=== PATIENT | male | born 1945 | race Asian ===

== ENCOUNTER 2021-08-06 10:16 | Emergency (ER) | payer MEDICARE, OTHER ==
--- NOTE | 2021-08-06 10:48 | XRAY Report ---
PROCEDURE: Chest 1 View X-Ray INDICATIONS: Chest pain TECHNIQUE: One view of the chest was acquired. COMPARISON: None FINDINGS: Surgical changes and devices: None. Lungs and pleura: An incomplete inspiratory result is noted, with low lung volumes and crowding of t he vascular markings. No focal infiltrates are seen. No large pneumothorax or large pleural effusion can be seen. Mediastinum: Mediastinal contours appear normal. Heart size is normal. Bones and chest wall: No suspicious bony lesions. Presumed enchondromas can be seen involving the ri ght proximal humerus. Age-appropriate degenerative changes are seen. Overlying soft tissues appear unremarkable. IMPRESSION: No acute abnormality can be seen on this portable chest study. Reviewed by: Ang Anne MD on 08/06/2021 9:46 AM MIT[facility]LL Approved by: Ang Anne MD on 08/06/2021 9:46 AM [place]LL Station ID: [id number]
[2021-08-06 10:50] LABS: BASOPHILS # (AUTO) 0.1 10^3/uL (0.0-0.1); BASOPHILS % (AUTO) 1.1 %; EOSINOPHILS # (AUTO) 0.1 10^3/uL (0.0-0.7); EOSINOPHILS % (AUTO) 1.3 %; HCT - HEMATOCRIT 38.4 % (42.0-52.0); HGB - HEMOGLOBIN 13.4 g/dL (14.0-18.0); LYMPHOCYTES # (AUTO) 1.2 10^3/uL (1.5-3.5); LYMPHOCYTES % (AUTO) 22.3 %; MEAN CORPUSCULAR HEMOGLOBIN 33.8 pg (27.0-31.0); MEAN CORPUSCULAR HGB CONC 34.9 g/dL (32.0-36.0); MEAN PLATELET VOLUME 9.2 fL (7.4-11.4); MONOCYTES # (AUTO) 0.6 10^3/uL (0.0-1.0); MONOCYTES % (AUTO) 10.7 %; NEUTROPHILS # (AUTO) 3.6 10^3/uL (1.5-6.6); NEUTROPHILS % (AUTO) 64.4 %; PLT - PLATELET COUNT 169 10^3/uL (130-450); RED BLOOD COUNT 3.96 10^6/uL (4.70-6.10); RED CELL DISTRIBUTION WIDTH 12.6 % (12.0-15.0); WHITE BLOOD COUNT 5.5 x10^3/uL (4.8-10.8)
[2021-08-06 11:05] LABS: ALBUMIN 4.3 g/dL (3.2-5.5); ALBUMIN/GLOBULIN RATIO 1.5 (1.0-2.2); BILIRUBIN,TOTAL 1.2 mg/dL (0.2-1.0); CALCIUM 9.6 mg/dL (8.5-10.3); CREATININE 1.2 mg/dL (0.6-1.2); TOTAL PROTEIN 7.2 g/dL (6.7-8.2)
--- NOTE | 2021-08-06 11:10 | ED Physician Documentation ---
PD HPI CHEST PAIN - Stated complaint Stated Complaint: CHEST PX - Chief complaint Chief Complaint: Cardiac - History obtained from History obtained from: Patient - History of Present Illness Timing - onset: Yesterday Timing - onset during: Light activity Timing - duration: Days (1) Timing - details: Waxing and waning Quality: Pressure, Tightness Location: Substernal Radiation: No: Jaw, Neck, Back Improved by: Rest, Nitro (took 2 NTG yesterday with improved symptoms. Chest discomfort back again today, but not improved with NTG.) Worsened by: Exertion (increased with walking around today. He has noted some mild pressure and dyspnea when walking the dog the past couple of weeks. prior CAD with [place]/stent 1998, with last stress testing done 3 years ago.). No: Inspiration, Movement Associated symptoms: No: Shortness of air, Nausea, Feeling faint / dizzy Similar symptoms before: Has not had sx before Recently seen: Not recently seen Review of Systems Constitutional: denies: Fever, Chills Nose: denies: Rhinorrhea / runny nose, Congestion Throat: denies: Sore throat Cardiac: reports: Chest pain / pressure. denies: Palpitations, Pedal edema, Calf pain Respiratory: denies: Dyspnea, Cough GI: denies: Abdominal Pain, Nausea, Vomiting, Diarrhea Musculoskeletal: denies: Neck pain, Back pain, Extremity swelling Neurologic: denies: Generalized weakness, Near syncope PD PAST MEDICAL HISTORY - Past Medical History Past Medical History: Yes Cardiovascular: Hypertension, High cholesterol, [place] Respiratory: None Neuro: None Endocrine/Autoimmune: Type 2 diabetes - Past Surgical History Past Surgical History: Yes Ortho: Spine surgery Cardiovascular: Coronary stent, AAA - Present Medications Home Medications: Ambulatory Orders Medication Instructions Recorded Confirmed Atorvastatin Calcium [Lipitor] 80 mg DAILY 08/06/21 08/06/21 Ezetimibe [Zetia] 1 tab DAILY 08/06/21 08/06/21 Isosorbide Mononitrate ER [Imdur] 30 mg PO DAILY 10 Days #10 tablet 08/06/21 Metoprolol Tartrate [Lopressor] 0 mg DAILY 08/06/21 08/06/21 lisinopriL [Zestril] 5 mg DAILY 08/06/21 08/06/21 metFORMIN [Glucophage] 1 tab DAILY 08/06/21 08/06/21 - Allergies Allergies/Adverse Reactions: Allergies Allergy/AdvReac Type Severity Reaction Status Date / Time morphine Allergy Hallucinati Verified 08/06/21 10:26 ons Penicillins Allergy Rash Verified 08/06/21 10:26 - Social History Does the pt smoke?: No Smoking Status: Never smoker Does the pt drink ETOH?: No Does the pt have substance abuse?: No PD ED PE NORMAL - Vitals Vital signs reviewed: Yes - General General: Alert and oriented X 3, No acute distress, Well developed/nourished - HEENT HEENT: Moist mucous membranes, Pharynx benign - Neck Neck: Supple, no meningeal sign, No adenopathy - Cardiac Cardiac: RRR, No murmur - Respiratory Respiratory: Clear bilaterally, Other (no chestwall tenderness. ) - Abdomen Abdomen: Soft, Non tender - Derm Derm: Normal color, Warm and dry - Extremities Extremities: No edema, No calf tenderness / cord - Neuro Neuro: Alert and oriented X 3, No motor deficit, Normal speech Results - Vitals Vitals: Oxygen O2 Source Room air - EKG (time done) 10:16 Rate: Rate (enter#) (83) Rhythm: NSR Crawford: Normal Intervals: Normal IN QRS: Normal Ischemia: Normal ST segments. No: ST elevation c/w ischemia, ST depression - Labs Labs: Laboratory Tests 08/06/21 08/06/21 08/06/21 10:37 10:37 10:37 WBC 5.5 RBC 3.96 L Hgb 13.4 L Hct 38.4 L MCV 97.0 H MCH 33.8 H MCHC 34.9 RDW 12.6 Plt Count 169 MPV 9.2 Neut # (Auto) 3.6 Lymph # (Auto) 1.2 L [place] # (Auto) 0.6 Eos # (Auto) 0.1 Baso # (Auto) 0.1 Absolute Nucleated RBC 0.00 Nucleated RBC % 0.0 Sodium 137 Potassium 4.0 Chloride 104 Carbon Dioxide 24 Anion Gap 9.0 BUN 21 H Creatinine 1.2 Estimated GFR (MDRD) 59 L Glucose 163 H Calcium 9.6 Total Bilirubin 1.2 H AST 23 ALT 26 Alkaline Phosphatase 65 Troponin I High Sens 5.2 Total Protein 7.2 Albumin 4.3 Globulin 2.9 Albumin/Globulin Ratio 1.5 Lipase 27 - Rads (name of study) chest xray Radiology: Prelim report reviewed (normal), See rad report PD MEDICAL DECISION MAKING - ED course Complexity details: re-evaluated patient (improved with NTG and Toradol. no further CP here. ), considered differential, d/w patient, d/w customer care consultant (Dr. Rios, cork insulation installer for Dr. Back. ) Departure - Departure Disposition: 01 Home, Self Care Clinical Impression: Chest pain Qualifiers: Chest pain type: precordial pain Qualified Code(s): R07.2 - Precordial pain Condition: Stable Record reviewed to determine appropriate education?: Yes Instructions: Angina Dc Follow-Up: SYEDA OSMAN MD [Primary Care Provider] - Rome Back MD [Provider Admit Priv/Credential] - Prescriptions: Isosorbide Mononitrate ER [Imdur] 30 mg PO DAILY 10 Days #10 tablet Comments: Your pain is concerning for heart symptoms such as angina. I talked with the on-call mill platform supervisor for Dr. Back who is arranging a time for a stress test for you. Follow-up with the cardiology office at the directed time for further testing. Continue usual current medications. Add Imdur which is a long-acting nitroglycerin medication daily in the meantime. You can add sublingual nitroglycerin if needed for chest pain episodes. Follow-up with cardiology or return to the ER if you are having to use the extra nitroglycerin frequently. Or if you have chest pain unresolved with that. To transmitted your prescription to [facility] in [place]. Discharge Date/Time: 08/06/21 13:35
[2021-08-06] MEDS ORDERED: KETOROLAC 30 MG/ML VIAL IVP STA (11:25)
[2021-08-06] MEDS ORDERED: NITROGLYCERIN SL 0.4 MG TABLET SL STA (11:25)
[2021-08-06] MEDS ORDERED: ISOSORBIDE MONONITRATE ER 30 MG TABLET PO STA (12:18)
[2021-08-06 13:10] VITALS: BP 120/66
== END 2021-08-06 13:35 | disposition home or self-care (01) ==
LOC: ED 10:16
DX: R07.2 Precordial pain (principal); I25.10 Atherosclerotic heart disease of native coronary artery without angina pectoris; I25.2 Old myocardial infarction; I10 Essential (primary) hypertension; Z95.5 Presence of coronary angioplasty implant and graft; E11.9 Type 2 diabetes mellitus without complications; Z79.84 Long term (current) use of oral hypoglycemic drugs
CPT/HCPCS: 36415; 71045; 80053; 83690; 84484; 85025; 93005; 99284; A9270

== ENCOUNTER 2021-08-10 13:03 | Outpatient (CLI) | payer MEDICARE | END 2021-08-10 13:04 | disposition home or self-care (01) | LOC: COV 13:03 | PROVIDERS: ATTEND Internal Medicine Cardiovascular Disease | DX: Z01.812 Encounter for preprocedural laboratory examination (principal); I25.10 Atherosclerotic heart disease of native coronary artery without angina pectoris; Z20.822 Contact with and (suspected) exposure to COVID-19 ==

== ENCOUNTER 2024-04-27 18:35 | Outpatient (CLI) | payer MEDICARE, OTHER | END 2024-04-27 23:59 | disposition short-term general hospital (02) | LOC: EMS 18:35 | DX: R07.89 Other chest pain (principal); Z95.5 Presence of coronary angioplasty implant and graft; I25.2 Old myocardial infarction | CPT/HCPCS: A0425; A0429 ==